=== PATIENT | female | born 1945 | race Caucasian/White ===

== ENCOUNTER → 2017-09-21 | Outpatient (CLI) | payer MEDICARE, MEDICAID ==
[~2017-09-21] VITALS: Ht 162.6 cm; Wt 81.0 kg
[~2017-09-21] MED LIST: ALEN70TA48 PO; ATOR20TA86 PO; CALC-1009 PO; CHLO100T24 PO; CHOL200016 PO; LAMO100 PO; METO25 PO; MIRALAX PO; MIRT30 PO; OMEP20 PO; PARO20TA24 PO; POTA8TAB4 PO; RISP2 PO; RISP4 PO; TRIH2TAB3 PO
[2017-09-21 09:16] VITALS: BP 144/91
== END | disposition home or self-care (01) ==
LOC: SRCNTR 09:08
PROVIDERS: ATTEND Internal Medicine Cardiovascular Disease
DX: I12.9 Hypertensive chronic kidney disease with stage 1 through stage 4 chronic kidney disease, or unspecified chronic kidney disease (principal); N18.9 Chronic kidney disease, unspecified
CPT/HCPCS: G0463

== ENCOUNTER → 2017-10-13 | Outpatient (CLI) | payer MEDICARE, MEDICAID ==
[~2017-10-13] VITALS: Ht 152.4 cm; Wt 80.0 kg
[2017-10-13 09:44] VITALS: BP 134/89
== END | disposition home or self-care (01) ==
LOC: SRCNTR 09:36
PROVIDERS: ATTEND Internal Medicine Cardiovascular Disease
DX: I11.9 Hypertensive heart disease without heart failure (principal); E66.9 Obesity, unspecified; E78.5 Hyperlipidemia, unspecified; K21.9 Gastro-esophageal reflux disease without esophagitis; K31.84 Gastroparesis; K59.00 Constipation, unspecified; M81.0 Age-related osteoporosis without current pathological fracture; Z89.012 Acquired absence of left thumb
CPT/HCPCS: 93005; G0463

== ENCOUNTER → 2018-02-15 | Outpatient (CLI) | payer MEDICARE, MEDICAID ==
[~2018-02-15] VITALS: Ht 152.4 cm; Wt 80.0 kg
[~2018-02-15] MED LIST changes: -CHOL200016 PO; +CHOL200059 PO
[2018-02-15 11:08] VITALS: BP 111/76
== END | disposition home or self-care (01) ==
LOC: SRCNTR 10:07
PROVIDERS: ATTEND Internal Medicine Cardiovascular Disease
DX: I11.9 Hypertensive heart disease without heart failure (principal); K21.9 Gastro-esophageal reflux disease without esophagitis; E66.9 Obesity, unspecified; R21 Rash and other nonspecific skin eruption; Q66.9 Congenital deformity of feet, unspecified; E78.5 Hyperlipidemia, unspecified
CPT/HCPCS: G0463